=== PATIENT | female | born 1970 | race African-American/Black ===

== ENCOUNTER 2017-01-07 19:17 | Emergency (ER) | payer SELFPAY ==
[~2017-01-07 19:17] MED LIST: METH750T2 PO
[2017-01-07 19:19] VITALS: BP 105/67; PULSE 89; RESP 18; O2SAT 100
[2017-01-07] MEDS ORDERED: PROPOFOL 1000 MG/100 ML INJ 100 ML ONE ×2 (19:27→20:51)
[2017-01-07 19:30] VITALS: O2SAT 100
[2017-01-07] MEDS ORDERED: SODIUM CHLOR 0.9% 1000 ML INJ 1,000 ML IV ONE ×2 (19:30)
[2017-01-07] MEDS ORDERED: SUCCINYLCHOLINE CHLORIDE 100 MG/5 ML SYRINGE IV PUSH ONE (19:45)
[2017-01-07] MEDS ORDERED: ETOMIDATE 20 MG/10 ML VIAL IV PUSH ONE (19:45)
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
[2017-01-07 19:50] VITALS: BP 141/66; PULSE 91; RESP 25; O2SAT 100
[2017-01-07] MEDS ORDERED: PROPOFOL 200 MG/20 ML AMP IV ONE (20:00)
[2017-01-07] MEDS ORDERED: HYDROmorphone HCL PF 1 MG/ML VIAL IV PUSH ONE (20:00)
[2017-01-07] MEDS ORDERED: LACTATED RINGER'S 1000 ML INJ 1,000 ML IV SCH (20:00)
[2017-01-07 20:03] VITALS: BP 135/80; PULSE 95; RESP 31; O2SAT 100
[2017-01-07 20:10] VITALS: BP 118/75; PULSE 84; RESP 19; O2SAT 100
[2017-01-07 20:15] LABS: AUTOMATED NEUTROPHIL # 9.4 TH/MM3 (1.8-7.7); BASOPHIL # 0.2 TH/MM3 (0-0.2); BASOPHIL % 1.9 % (0.0-2.0); EOSINOPHIL % 0.3 % (0.0-4.0); HEMATOCRIT 47.2 % (35.0-46.0); LYMPH % 11.3 % (9.0-44.0); LYMPHOCYTE # 1.4 TH/MM3 (1.0-4.8); MEAN CELL VOLUME 91.3 FL (80.0-100.0); MEAN CORPUSCULAR HEMOGLOBIN 29.6 PG (27.0-34.0); MEAN CORPUSCULAR HGB CONC 32.5 % (32.0-36.0); MONO % 11.5 % (0.0-8.0); PLATELET COUNT 194 TH/MM3 (150-450); RED BLOOD COUNT 5.17 MIL/MM3 (4.00-5.30); RED CELL DISTRIBUTION WIDTH 14.6 % (11.6-17.2); WHITE BLOOD COUNT 12.6 TH/MM3 (4.0-11.0)
[2017-01-07 20:18] LABS: ALT (GPT) 32 U/L (10-53)
[2017-01-07 20:21] LABS: HEMO FLAGS AUTO DIFF
[2017-01-07 20:23] LABS: ANION GAP 14 MEQ/L (5-15); AST (GOT) 70 U/L (15-37); BICARBONATE 18.2 MEQ/L (21.0-32.0); BLOOD UREA NITROGEN 7 MG/DL (7-18); CHLORIDE 103 MEQ/L (98-107); GLOMERULAR FILTRATION RATE 41 ML/MIN (>89); SODIUM (NA) 135 MEQ/L (136-145)
[2017-01-07 20:24] LABS: BACTERIA, URINE RARE /hpf; BLOOD, URINE TRACE (NEG); GLUCOSE,URINE NEG (NEG); HYALINE CAST, URINE 1 /lpf (RARE); KETONE, URINE NEG (NEG); MUCUS URINE FEW /lpf (OCC); NITRITE,URINE NEG (NEG); PH, URINE 5.5 (5.0-8.5); SQUAMOUS EPITHELIAL CELL URINE 1 /hpf (0-5); URINE COLOR YELLOW (YELLW/STRAW)
[2017-01-07 20:24] LABS: POTASSIUM 3.7 MEQ/L (3.5-5.1)
[2017-01-07 20:25] LABS: COMMENT (UR) CATH
[2017-01-07 20:38] LABS: ALKALINE PHOSPHATASE 78 U/L (45-117); CREATINE KINASE 2400 U/L (26-192); TOTAL BILIRUBIN ADULT 0.5 MG/DL (0.2-1.0)
--- NOTE | 2017-01-07 20:47 | RADRPT ---
EXAM DATE/TIME: 01/07/2017 20:37 [place] COMPARISON: No previous studies available for comparison. INDICATIONS : ET tube placement. MEDICAL HISTORY : None. SURGICAL HISTORY : None. ENCOUNTER: Initial ACUITY: 1 day PAIN SCORE: Non-responsive. LOCATION: Bilateral chest FINDINGS: Endotracheal tube tip at the level the clavicles. NG tube side port at the EG junction. There is line ar scarring versus atelectasis in the right midlung. Heart size normal. CONCLUSION: NG tube and ET tube as above. Dieudonne Torres MD on January 07, 2017 at 20:45 Board Certified Radiologist. This report was verified electronically.
[2017-01-07 21:01] LABS: CKMB 12.5 NG/ML (0.5-3.6)
[2017-01-07 21:13] LABS: PLATELET ESTIMATE SMEAR NORMAL (NORMAL); PLATELET MORPHOLOGY ENLARGED (NORMAL); SCAN/DIFF AUTO DIFF CONFIRMED
[2017-01-07 21:31] LABS: BLOOD GAS BASE EXCESS -8.2 mmol/L (-2-2); BLOOD GAS CARBOXYHEMOGLOBIN 3.1 % (0-4); BLOOD GAS HCO3 18 mmol/L (22-26); BLOOD GAS METHEMOGLOBIN 0.7 % (0-2); BLOOD GAS O2 HGB SATURATION 96 % (90-100); BLOOD GAS PCO2 45 mmHg (38-42); BLOOD GAS PO2 470 mmHG (61-120); BLOOD GAS TOTAL HGB 13.2 G/DL (12.0-16.0); TEMP CORR TO 98.6
[2017-01-07 21:32] LABS: CRITICAL VALUE YES; FIO2 100 %; OXYGEN DEVICE VENTILATOR; VENT SETTINGS PRVC
[2017-01-07 21:33] LABS: DRAW SITE LT RADIAL; NUMBER OF ARTERIAL PUNCTURES 1; STAT YES; ULNAR PULSE PRESENT
== END 2017-01-07 21:13 | disposition short-term general hospital (02) ==
LOC: NEPE 19:17
DX: T30.0 Burn of unspecified body region, unspecified degree (principal); X08.8XXA Exposure to other specified smoke, fire and flames, initial encounter
CPT/HCPCS: 31500; 36600; 51702; 71010; 80053; 80307; 81001; 82550; 82552; 82805; 85025; 96361; 96374; 99291; J0330; J1170; J7030; J7120

== ENCOUNTER 2017-02-27 19:00 | Observation (INO) | payer SELFPAY ==
[2017-02-28 10:00] VITALS: BP 104/64; PULSE 97; RESP 20; TEMP 98.2; O2SAT 99
[2017-02-28] MEDS ORDERED: SODIUM CHLORIDE 0.9% FLUSH 10 ML FLUSH IV FLUSH PRN (10:30)
[2017-02-28] MEDS ORDERED: NALOXONE HCL 0.4 MG/ML AMP IV PUSH PRN (10:30)
[2017-02-28] MEDS ORDERED: RESP: ALBUTEROL 1.25 MG/3 ML NEB (PRN) NEB (10:30)
[2017-02-28] MEDS ORDERED: LORazepam 0.5 MG TAB PO PRN (11:00)
[2017-02-28] MEDS ORDERED: hydrOXYzine HCL SYRUP 10 MG/5 ML CUP PO PRN (11:00)
[2017-02-28] MEDS ORDERED: MORPHINE SULFATE 2 MG/ML INJ IV PUSH PRN (11:00)
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
[2017-02-28] MEDS: GABAPENTIN 300 MG CAP PO SCH ×2 (12:28→17:44)
[2017-02-28] MEDS: QUEtiapine FUMARATE 25 MG TAB PO SCH ×2 (12:28→17:44)
[2017-02-28] MEDS: PROPRANOLOL HCL 10 MG TAB PO SCH ×2 (12:29→17:44)
[2017-02-28] MEDS: ASCORBIC ACID 500 MG TAB PO SCH ×2 (12:31→17:44)
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
[2017-02-28 16:00] VITALS: BP 104/63; PULSE 99; RESP 20; TEMP 98.6; O2SAT 97
[2017-02-28] MEDS ORDERED: QUET5TAB PO (16:50)
[2017-02-28] MEDS ORDERED: MULTTAB67 PO (16:50)
[2017-02-28] MEDS ORDERED: PROP10TA6 PO (16:50)
[2017-02-28] MEDS ORDERED: METH500T3 PO (16:50)
[2017-02-28] MEDS ORDERED: BACI500O2 TOPICAL (16:50)
[2017-02-28] MEDS ORDERED: HYDR-3133 PO (16:50)
[2017-02-28] MEDS ORDERED: OXYC1CAP PO (16:50)
[2017-02-28] MEDS ORDERED: ASCO500T PO (16:50)
[2017-02-28] MEDS ORDERED: CETI10 PO (16:50)
[2017-02-28] MEDS ORDERED: FAMO20TA2 PO (16:50)
[2017-02-28] MEDS ORDERED: TRAM50TA PO (16:50)
[2017-02-28] MEDS ORDERED: SENO17.2 PO (16:50)
[2017-02-28] MEDS ORDERED: ENOX30IN SQ (16:50)
[2017-02-28] MEDS ORDERED: GABA600T PO (16:50)
[2017-02-28] MEDS ORDERED: HYDR25TA5 PO (16:50)
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
[2017-02-28 19:55] VITALS: BP 105/58; PULSE 98; RESP 19; TEMP 99; O2SAT 97
[2017-02-28] MEDS ORDERED: traZODone HCL 50 MG TAB PO SCH (21:00)
[2017-02-28] MEDS ORDERED: traZODone HCL 100 MG TAB PO SCH (21:00)
[2017-02-28] MEDS ORDERED: DOCUSATE SODIUM 50 MG/SENNA 8.6 MG TAB PO SCH (21:00)
[2017-02-28] MEDS ORDERED: SODIUM CHLORIDE 0.9% FLUSH 10 ML FLUSH IV FLUSH SCH (21:00)
[2017-02-28] MEDS ORDERED: FAMOTIDINE 20 MG TAB PO SCH (21:00)
[2017-03-01] MEDS ORDERED: HYDROCHLOROTHIAZIDE 25 MG TAB PO SCH ×2 (09:00→15:00)
[2017-03-01] MEDS ORDERED: CETIRIZINE HCL SYRUP 10 MG/10 ML UDC PO SCH (09:00)
[2017-03-01] MEDS ORDERED: ENOXAPARIN SODIUM 40 MG/0.4 ML SYRINGE SQ SCH (09:00)
[2017-03-01] MEDS ORDERED: BACITRACIN OINT 0.9 GM PKT TOPICAL SCH (09:00)
[2017-03-01] MEDS ORDERED: MULTIVITAMIN TAB PO SCH (09:00)
[2017-03-01] MEDS ORDERED: ASCORBIC ACID 500 MG TAB PO SCH ×2 (09:00→14:00)
[2017-03-01] MEDS ORDERED: traMADol HCL 50 MG TAB PO PRN (11:30)
[2017-03-01] MEDS ORDERED: hydrOXYzine HCL 25 MG TAB PO PRN (11:30)
[2017-03-01] MEDS ORDERED: NON-FORMULARY DRUG (Multiple Vitamin 1 TAB) PO SCH (11:30)
[2017-03-01] MEDS ORDERED: PROPRANOLOL HCL 10 MG TAB PO SCH (12:00)
[2017-03-01] MEDS ORDERED: SODIUM CHLORIDE 0.9% FLUSH 10 ML FLUSH IV FLUSH PRN (12:00)
[2017-03-01] MEDS ORDERED: NALOXONE HCL 0.4 MG/ML AMP IV PUSH PRN (12:00)
[2017-03-01] MEDS ORDERED: SODIUM CHLORIDE 0.9% FLUSH 10 ML FLUSH IV FLUSH SCH (12:00)
[2017-03-01] MEDS ORDERED: SENNOSIDES 8.6 MG TAB PO PRN (12:00)
[2017-03-01] MEDS ORDERED: BISACODYL 10 MG SUPP RECTAL PRN (12:00)
[2017-03-01] MEDS ORDERED: cloNIDine HCL 0.1 MG TAB PO PRN (12:15)
[2017-03-01] MEDS ORDERED: QUETIAPINE 50 MG PO SCH (13:00)
[2017-03-01] MEDS ORDERED: DOCUSATE SODIUM 50 MG/SENNA 8.6 MG TAB PO SCH (13:00)
[2017-03-01] MEDS ORDERED: GABAPENTIN 300 MG CAP PO SCH (14:00)
[2017-03-01] MEDS ORDERED: CETIRIZINE HCL 10 MG TAB PO SCH (14:00)
[2017-03-01] MEDS ORDERED: METHOCARBAMOL 500 MG TAB PO SCH (14:00)
[2017-03-01] MEDS ORDERED: BACITRACIN TOP OINT 15 GM TUBE TOPICAL SCH (14:00)
[2017-03-01] MEDS ORDERED: MAGNESIUM HYDROXIDE SUSP 30 ML CUP PO PRN (15:00)
[2017-03-01] MEDS ORDERED: LACTULOSE SYRUP 20 GM/30 ML CUP PO PRN (15:00)
[2017-03-01] MEDS ORDERED: FAMOTIDINE 20 MG TAB PO SCH (15:00)
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
== END 2017-02-28 20:38 ==
LOC: OBSVTOIN 02-28 09:44 → N06A 02-28 09:44 → INTOOBSV 02-28 09:44
PROVIDERS: ADMIT Internal Medicine; ATTEND Internal Medicine
DX: T28.0 Burn of mouth and pharynx (principal); R91.1 Solitary pulmonary nodule; J45.909 Unspecified asthma, uncomplicated; I50.32 Chronic diastolic (congestive) heart failure; G40.909 Epilepsy, unspecified, not intractable, without status epilepticus; R59.9 Enlarged lymph nodes, unspecified; R00.0 Tachycardia, unspecified; Z87.891 Personal history of nicotine dependence; R53.1 Weakness; F31.9 Bipolar disorder, unspecified; X76.XXXD Intentional self-harm by smoke, fire and flames, subsequent encounter; Z86.718 Personal history of other venous thrombosis and embolism; Z86.73 Personal history of transient ischemic attack (TIA), and cerebral infarction without residual deficits
CPT/HCPCS: 97162; G0378; G8987; G8988

== ENCOUNTER 2017-02-28 16:42 | Inpatient (IN) | payer SELFPAY ==
[~2017-02-28] VITALS: Ht 182.9 cm; Wt 63.5 kg
[2017-02-28] MEDS ORDERED: TRAM50TA PO (16:50)
[2017-02-28] MEDS ORDERED: GABA600T PO (16:50)
[2017-02-28] MEDS ORDERED: ASCO500T PO (16:50)
[2017-02-28] MEDS ORDERED: FAMO20TA2 PO (16:50)
[2017-02-28] MEDS ORDERED: METH500T3 PO (16:50)
[2017-02-28] MEDS ORDERED: SENO17.2 PO (16:50)
[2017-02-28] MEDS ORDERED: ENOX30IN SQ (16:50)
[2017-02-28] MEDS ORDERED: HYDR-3133 PO (16:50)
[2017-02-28] MEDS ORDERED: PROP10TA6 PO (16:50)
[2017-02-28] MEDS ORDERED: QUET5TAB PO (16:50)
[2017-02-28] MEDS ORDERED: CETI10 PO (16:50)
[2017-02-28] MEDS ORDERED: HYDR25TA5 PO (16:50)
[2017-02-28] MEDS ORDERED: BACI500O2 TOPICAL (16:50)
[2017-02-28] MEDS ORDERED: OXYC1CAP PO (16:50)
[2017-02-28] MEDS ORDERED: MULTTAB67 PO (16:50)
[2017-02-28 20:30] VITALS: BP 114/60; PULSE 100; RESP 16; TEMP 99; O2SAT 96
[2017-02-28] MEDS: GABAPENTIN 300 MG CAP PO SCH (22:47)
[2017-02-28] MEDS: traZODone HCL 50 MG TAB PO SCH (22:47)
[2017-02-28] MEDS: FAMOTIDINE 20 MG TAB PO SCH (22:47)
[2017-03-01 05:00] VITALS: BP 110/55; PULSE 97; RESP 17; TEMP 98.5; O2SAT 97
[2017-03-01] MEDS: PROPRANOLOL HCL 10 MG TAB PO SCH ×5 (06:00→22:18)
[2017-03-01] MEDS: GABAPENTIN 300 MG CAP PO SCH ×3 (07:02→22:18)
[2017-03-01] MEDS ORDERED: QUEtiapine FUMARATE 25 MG TAB PO SCH (09:00)
[2017-03-01] MEDS: BACITRACIN TOP OINT 15 GM TUBE TOPICAL SCH (09:00)
[2017-03-01] MEDS: DOCUSATE SODIUM 100 MG CAP PO SCH ×2 (09:00→21:00)
[2017-03-01] MEDS: CETIRIZINE HCL 10 MG TAB PO SCH (09:06)
[2017-03-01] MEDS: ASCORBIC ACID 500 MG TAB PO SCH ×3 (09:06→17:43)
[2017-03-01] MEDS: MULTIVITAMIN TAB PO SCH (09:06)
[2017-03-01] MEDS: FAMOTIDINE 20 MG TAB PO SCH ×2 (09:06→22:19)
[2017-03-01] MEDS: HYDROCHLOROTHIAZIDE 25 MG TAB PO SCH (09:07)
[2017-03-01] MEDS: ENOXAPARIN SODIUM 30 MG/0.3 ML SYRINGE SQ SCH (09:10)
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
[2017-03-01 12:20] LABS: AUTOMATED NEUTROPHIL # 5.1 TH/MM3 (1.8-7.7); BASOPHIL # 0.1 TH/MM3 (0-0.2); BASOPHIL % 1.1 % (0.0-2.0); EOSINOPHIL # 0.4 TH/MM3 (0-0.4); EOSINOPHIL % 4.7 % (0.0-4.0); HEMATOCRIT 37.1 % (35.0-46.0); HEMO FLAGS DIFF FINAL; LYMPHOCYTE # 1.3 TH/MM3 (1.0-4.8); MEAN CELL VOLUME 89.9 FL (80.0-100.0); MEAN CORPUSCULAR HEMOGLOBIN 28.8 PG (27.0-34.0); MONO % 12.7 % (0.0-8.0); NEUT % 65.5 % (16.0-70.0); PLATELET COUNT 207 TH/MM3 (150-450); RED BLOOD COUNT 4.13 MIL/MM3 (4.00-5.30); RED CELL DISTRIBUTION WIDTH 16.5 % (11.6-17.2); WHITE BLOOD COUNT 7.8 TH/MM3 (4.0-11.0)
[2017-03-01 12:24] LABS: APTT (PATIENT) 28.3 SEC (24.3-30.1)
[2017-03-01] MEDS: QUEtiapine FUMARATE 25 MG TAB PO SCH (15:50)
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
[2017-03-01 17:57] VITALS: BP 129/70; PULSE 107; RESP 18; TEMP 97.9; O2SAT 95
[2017-03-01] MEDS ORDERED: QUEtiapine FUMARATE 100 MG TAB PO SCH (21:00)
[2017-03-01] MEDS: hydrOXYzine HCL 25 MG TAB PO PRN (22:18)
[2017-03-01] MEDS: traZODone HCL 50 MG TAB PO SCH (22:19)
[2017-03-02 06:16] VITALS: BP 117/62; PULSE 99; RESP 16; TEMP 98.5; O2SAT 94
[2017-03-02] MEDS: PROPRANOLOL HCL 10 MG TAB PO SCH ×3 (06:36→18:00)
[2017-03-02] MEDS: GABAPENTIN 300 MG CAP PO SCH ×3 (06:36→21:33)
[2017-03-02] MEDS: hydrOXYzine HCL 25 MG TAB PO PRN (06:42)
[2017-03-02] MEDS: DOCUSATE SODIUM 100 MG CAP PO SCH ×3 (09:00→21:33)
[2017-03-02] MEDS: ASCORBIC ACID 500 MG TAB PO SCH ×3 (09:24→18:00)
[2017-03-02] MEDS: FAMOTIDINE 20 MG TAB PO SCH ×2 (09:24→21:33)
[2017-03-02] MEDS: HYDROCHLOROTHIAZIDE 25 MG TAB PO SCH (09:25)
[2017-03-02] MEDS: MULTIVITAMIN TAB PO SCH (09:27)
[2017-03-02] MEDS: CETIRIZINE HCL 10 MG TAB PO SCH (09:27)
[2017-03-02] MEDS: EUCERIN CREAM 120 GM JAR TOPICAL SCH (09:28)
[2017-03-02] MEDS: BACITRACIN TOP OINT 15 GM TUBE TOPICAL SCH (09:28)
[2017-03-02] MEDS: ENOXAPARIN SODIUM 30 MG/0.3 ML SYRINGE SQ SCH (09:28)
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
[2017-03-02] MEDS: QUEtiapine FUMARATE 25 MG TAB PO SCH ×2 (09:36→16:00)
--- NOTE | 2017-03-02 12:13 | HHI.PYPN ---
Subjective Remarks Patient seen for follow-up, chart reviewed. Patient seen with radio news writer and a occupational therapist and therapist. Patient found lying in hospital bed noted to, cooperative interview today. Patient states that her mood has been fine" reports having slept "like a baby" which was happy about. Patient is reports that her pain is under control with current medication regimen. She reports having taken a shower earlier today that her mood has been "good". Patient reports feeling somewhat sad and depressed as the daughter did not visit her continues denied her recent event of self injury as a suicide attempt. She reports tolerating medications well. She states that she states that she has spoken to her daughter over the phone and that her sister plans to visit her today. Review of Systems Except as stated in HPI: all other systems reviewed are Neg Mental Status Examination Appearance: Appropriate Consciousness: Alert Orientation: Person, Place, Date/Time Speech: Unremarkable Language: Adequate Fund of Knowledge: Adequate Attention and Concentration: Adequate Memory: Impaired (surrounding events after recent watson) Mood: Sad Affect: Sad, Other (tearful at times) Thought Process & Associations: Intact, Linear Thought Content: Appropriate Hallucination Type: None Delusion Type: None Suicidal Ideation: Yes (denies at this time) Suicidal Plan: No Suicidal Intention: No Homicidal Ideation: No Homicidal Plan: No Homicidal Intention: No Insight: Poor Judgment: Poor Results Vitals/IOs Vital Signs Date Time Temp Pulse Resp B/P (MAP) Pulse Ox O2 Delivery O2 Flow Rate FiO2 03/02/17 06:16 98.5 99 16 117/62 (80) 94 Intake and Output 03/02/17 03/02/17 03/03/17 08:00 16:00 00:00 Intake Total 240 ml Balance 240 ml Assessment & Plan Problem List: (1) Adjustment disorder with depressed mood ICD Codes: F43.21 - Adjustment disorder with depressed mood Assessment & Plan Patient at this time continues to deny recent watson as a suicide attempt despite her account of the incident be an unlikely. Patient tolerating medications well, reporting feeling somewhat depressed but denies any suicide ideations. We'll continue to increase quetiapine to therapeutic dose, 50 mg a.m./50mgPM/150mg HS for mood stabilization with a target dose of 300-400 mg. Collateral pending from daughter. Unclear whether patient will be returning back to or will be living with daughter. Discharge planning in progress Justification for Cont. Inpt. At risk for further decompensation if at lower level of care Discharge Planning Patient possibly to be discharged to patient's daughter's residence Shaquille Sandhu MD Mar 02, 2017 12:13
[2017-03-02] MEDS ORDERED: PILL SPLITTER OTHER PRN (12:30)
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
[2017-03-02 18:22] VITALS: BP 116/75; PULSE 97; RESP 18; TEMP 98.3; O2SAT 97
[2017-03-02] MEDS ORDERED: QUEtiapine FUMARATE 100 MG TAB PO SCH (21:00)
[2017-03-02] MEDS: traMADol HCL 50 MG TAB PO PRN (21:32)
[2017-03-02] MEDS: traZODone HCL 50 MG TAB PO SCH (21:33)
[2017-03-03] MEDS: GABAPENTIN 300 MG CAP PO SCH ×3 (05:35→20:35)
[2017-03-03] MEDS: PROPRANOLOL HCL 10 MG TAB PO SCH ×4 (05:36→18:00)
[2017-03-03 05:59] VITALS: BP 131/73; PULSE 94; RESP 17; TEMP 97.9; O2SAT 95
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
[2017-03-03] MEDS: DOCUSATE SODIUM 100 MG CAP PO SCH ×3 (09:00→20:36)
[2017-03-03] MEDS: QUEtiapine FUMARATE 25 MG TAB PO SCH ×2 (09:00→16:00)
[2017-03-03 09:34] LABS: AUTOMATED NEUTROPHIL # 4.1 TH/MM3 (1.8-7.7); BASOPHIL # 0.1 TH/MM3 (0-0.2); BASOPHIL % 1.7 % (0.0-2.0); EOSINOPHIL # 0.4 TH/MM3 (0-0.4); HEMATOCRIT 40.5 % (35.0-46.0); HEMO FLAGS DIFF FINAL; LYMPHOCYTE # 1.9 TH/MM3 (1.0-4.8); MEAN CELL VOLUME 89.3 FL (80.0-100.0); MEAN CORPUSCULAR HEMOGLOBIN 29.1 PG (27.0-34.0); MEAN CORPUSCULAR HGB CONC 32.5 % (32.0-36.0); NEUT % 55.3 % (16.0-70.0); PLATELET COUNT 249 TH/MM3 (150-450); RED BLOOD COUNT 4.54 MIL/MM3 (4.00-5.30); RED CELL DISTRIBUTION WIDTH 15.7 % (11.6-17.2); WHITE BLOOD COUNT 7.5 TH/MM3 (4.0-11.0)
--- NOTE | 2017-03-03 09:51 | RADRPT ---
EXAM DATE/TIME: 03/03/2017 09:18 [facility] COMPARISON: No previous studies available for comparison. INDICATIONS : Right upper lobe nodule with possible metastases to rib cage. RADIATION DOSE: 5.90 CTDIvol (mGy) MEDICAL HISTORY : Cardiovascular disease. Deep venous thrombosis. Seizures. SURGICAL HISTORY : None. ENCOUNTER: Initial ACUITY: 1 day PAIN SCALE: 0/10 LOCATION: Bilateral chest TECHNIQUE: Volumetric scanning of the chest was performed. Using automated exposure control and adjustment of t he mA and/or kV according to patient size, radiation dose was kept as low as reasonably achievable to obtain optimal diagnostic quality images. DICOM format image data is available electronically for r eview and comparison. Follow-up recommendations for detected pulmonary nodules are based at a minimum on nodule size and pa tient risk factors according to Fleischner Society Guidelines. FINDINGS: LUNGS: There is a spiculated mass involving the central portion of the right upper lobe. This measures 1.6 x 1.3 cm. There is some stranding of the adjacent lung parenchyma. This is directly adjacent to the pu lmonary vessels. A 6 mm subpleural nodule seen involving the left upper lobe anterolaterally. Remaini ng lungs are clear. No infiltrates or effusions. Minimal linear atelectasis versus scarring within th e bases PLEURAE: There is no pleural thickening or pleural effusion. MEDIASTINUM: The heart is normal in size. A small pericardial effusion observed. Aorta and pulmonary arteries are grossly unremarkable this unenhanced study. No gross adenopathy observed. AXILLAE: Bilateral axillary adenopathy. The largest lymph node on the right measures 2.0 x 1.1 cm and on the l eft 2.4 x 1.1 cm.. MUSCULOSKELETAL: There is an area of sclerosis involving the right ninth rib at the costochondral junction. No destruc tion. The remaining visualized skeletal structures are unremarkable. MISCELLANEOUS: The visualized upper abdominal organs demonstrate no acute abnormality. CONCLUSION: 1. Right upper lobe spiculated pulmonary mass measuring 1.6 x 1.3 cm suspicious for malignancy. There is bilateral axillary adenopathy. A pulmonary lesion could relate to an isolated metastasis or prima ry bronchogenic carcinoma. Axial further evaluation of the abdomen and pelvis utilizing a CT scan wit h oral and IV contrast is warranted to evaluate for primary lesion. Consideration after this could be made to right upper lobe pulmonary biopsy if clinically warranted. This biopsy would be relatively h igh risk given the surrounding pulmonary vessels secondary to the central location of the lesion. 2. Small pericardial effusion. 3. Sclerotic change involving the right ninth rib with CT characteristics suggesting prior trauma. Doe Juárez Jr., MD on March 03, 2017 at 9:42 Board Certified Radiologist. This report was verified electronically.
[2017-03-03] MEDS: FAMOTIDINE 20 MG TAB PO SCH ×2 (09:56→20:31)
[2017-03-03] MEDS: MULTIVITAMIN TAB PO SCH (09:56)
[2017-03-03] MEDS: ASCORBIC ACID 500 MG TAB PO SCH ×3 (09:56→18:00)
[2017-03-03] MEDS: HYDROCHLOROTHIAZIDE 25 MG TAB PO SCH (09:56)
[2017-03-03] MEDS: CETIRIZINE HCL 10 MG TAB PO SCH (09:56)
[2017-03-03] MEDS: ENOXAPARIN SODIUM 30 MG/0.3 ML SYRINGE SQ SCH (10:00)
[2017-03-03] MEDS: BACITRACIN TOP OINT 15 GM TUBE TOPICAL SCH (10:00)
[2017-03-03] MEDS: EUCERIN CREAM 120 GM JAR TOPICAL SCH (10:00)
[2017-03-03 10:03] LABS: ANION GAP 8 MEQ/L (5-15); AST (GOT) 17 U/L (15-37); BLOOD UREA NITROGEN 5 MG/DL (7-18); CHLORIDE 101 MEQ/L (98-107); GLOMERULAR FILTRATION RATE 105 ML/MIN (>89); MAGNESIUM 1.8 MG/DL (1.5-2.5); POTASSIUM 3.7 MEQ/L (3.5-5.1); SODIUM (NA) 136 MEQ/L (136-145)
[2017-03-03 10:15] LABS: ALKALINE PHOSPHATASE 78 U/L (45-117); ALT (GPT) 12 U/L (10-53); FREE T4 0.94 NG/DL (0.76-1.46); TOTAL BILIRUBIN ADULT 0.5 MG/DL (0.2-1.0)
--- NOTE | 2017-03-03 11:23 | RADRPT ---
EXAM DATE/TIME: 03/03/2017 10:45 [facility] COMPARISON: No previous studies available for comparison. INDICATIONS : Evaluate for possible lung biopsy. FINDINGS: Request was made for lung biopsy. This patient has a spiculated mass within the right upper lobe. Axi llary adenopathy noted. This is concerning for metastatic disease. The biopsy is relatively high risk given central location and surrounding pulmonary vasculature. CONCLUSION: I would suggest formal evaluation with CT of the abdomen and pelvis using oral and IV contrast to cheyanne luate for a primary lesion. Correlation with mammography is also suggested. Doe Juárez Jr., MD on March 03, 2017 at 11:19 Board Certified Radiologist. This report was verified electronically.
[2017-03-03 11:34] LABS: HEMOGLOBIN A1a 1.8 %; HEMOGLOBIN Ao 85.4 %; HEMOGLOBIN P3 3.4 %
--- NOTE | 2017-03-03 12:43 | HHI.PYPN ---
Subjective Remarks Patient seen for follow-up, chart reviewed. Discussion she staff reported the patient has a compliant with treatment and cooperative with staff. Patient found sitting in hospital chair noted to be calm and cooperative states feeling a little fatigued but her mood has been "okay". Patient states that she feels much better although sad due to recent events but is having "thoughts of living was ". Patient denies any suicide ideation at this time, continues to deny it being a suicide attempt. She states that her 3 reasons to live or that her God gave her a second chance, for herself and her grandchildren. Patient states that she does not plan to return back to her and has not spoken to him but is willing to meet with him if he comes to visit. Patient states that she is considering staying with her daughter upon discharge for support and plans on returning back to school. Review of Systems Except as stated in HPI: all other systems reviewed are Neg Mental Status Examination Appearance: Appropriate Consciousness: Alert Orientation: Person, Place, Date/Time Speech: Unremarkable Language: Adequate Fund of Knowledge: Adequate Attention and Concentration: Adequate Memory: Impaired (surrounding events after recent watson) Mood: Sad (less so today) Affect: Sad, Other (tearful at times) Thought Process & Associations: Intact, Linear Thought Content: Appropriate Hallucination Type: None Delusion Type: None Suicidal Ideation: Yes (denies at this time) Suicidal Plan: No Suicidal Intention: No Homicidal Ideation: No Homicidal Plan: No Homicidal Intention: No Insight: Poor Judgment: Poor Results Labs Labs reviewed 03/03/17 08:57 White Blood Count 7.5 TH/MM3 Red Blood Count 4.54 MIL/MM3 Hemoglobin 13.2 GM/DL Hematocrit 40.5 % Mean Corpuscular Volume 89.3 FL Mean Corpuscular Hemoglobin 29.1 PG Mean Corpuscular Hemoglobin Concent 32.5 % Red Cell Distribution Width 15.7 % Platelet Count 249 TH/MM3 Mean Platelet Volume 10.9 FL Neutrophils (%) (Auto) 55.3 % Lymphocytes (%) (Auto) 25.0 % Monocytes (%) (Auto) 12.0 % Eosinophils (%) (Auto) 6.0 % Basophils (%) (Auto) 1.7 % Neutrophils # (Auto) 4.1 TH/MM3 Lymphocytes # (Auto) 1.9 TH/MM3 Monocytes # (Auto) 0.9 TH/MM3 Eosinophils # (Auto) 0.4 TH/MM3 Basophils # (Auto) 0.1 TH/MM3 CBC Comment DIFF FINAL Differential Comment Blood Urea Nitrogen 5 MG/DL Creatinine 0.72 MG/DL Random Glucose 109 MG/DL Total Protein 8.4 GM/DL Albumin 3.1 GM/DL Calcium Level 9.5 MG/DL Phosphorus Level 4.1 MG/DL Magnesium Level 1.8 MG/DL Alkaline Phosphatase 78 U/L Aspartate Amino Transf (AST/SGOT) 17 U/L Alanine Aminotransferase (ALT/SGPT) 12 U/L Total Bilirubin 0.5 MG/DL Sodium Level 136 MEQ/L Potassium Level 3.7 MEQ/L Chloride Level 101 MEQ/L Carbon Dioxide Level 27.0 MEQ/L Anion Gap 8 MEQ/L Estimat Glomerular Filtration Rate 105 ML/MIN Hemoglobin A1c 5.1 % Free Thyroxine 0.94 NG/DL Thyroid Stimulating Hormone 3rd Gen 1.570 uIU/ML Vitals/IOs Vital Signs Date Time Temp Pulse Resp B/P (MAP) Pulse Ox O2 Delivery O2 Flow Rate FiO2 03/03/17 05:59 97.9 94 17 131/73 (92) 95 Intake and Output 03/03/17 03/03/17 03/04/17 08:00 16:00 00:00 Intake Total 0 ml 360 ml Balance 0 ml 360 ml Assessment & Plan Problem List: (1) Adjustment disorder with depressed mood ICD Codes: F43.21 - Adjustment disorder with depressed mood Assessment & Plan Patient continues endorse feeling sad but denies any suicidal ideations at this time. Patient appears to be improving with mood continues to deny recent events a suicide attempt despite high suspicion of it being likely. Would continue to titrate quetiapine to 50 mg a.m./50 mg p.m./200 mg at bedtime for mood stabilization. Continue recommendations as per primary medical team. Discharge planning in progress Justification for Cont. Inpt. At risk for further decompensation if at lower level of care Discharge Planning Patient possibly discharged to daughter's residence once psychiatrically stable. Shaquille Sandhu MD Mar 03, 2017 12:43
[2017-03-03 18:00] VITALS: BP 109/57; PULSE 93; RESP 17; TEMP 98.3; O2SAT 93
[2017-03-03] MEDS: traZODone HCL 50 MG TAB PO SCH (20:33)
[2017-03-03] MEDS: QUEtiapine FUMARATE 100 MG TAB PO SCH (20:33)
[2017-03-03] MEDS: traMADol HCL 50 MG TAB PO PRN (20:34)
[2017-03-04] MEDS: PROPRANOLOL HCL 10 MG TAB PO SCH ×4 (00:05→17:32)
[2017-03-04] MEDS: GABAPENTIN 300 MG CAP PO SCH ×3 (06:06→20:52)
[2017-03-04 06:09] VITALS: BP 126/64; PULSE 91; RESP 17; TEMP 98; O2SAT 96
[2017-03-04 08:13] LABS: AUTOMATED NEUTROPHIL # 2.6 TH/MM3 (1.8-7.7); BASOPHIL # 0.1 TH/MM3 (0-0.2); BASOPHIL % 1.3 % (0.0-2.0); EOSINOPHIL # 0.5 TH/MM3 (0-0.4); EOSINOPHIL % 8.9 % (0.0-4.0); HEMATOCRIT 36.9 % (35.0-46.0); HEMO FLAGS DIFF FINAL; LYMPH % 26.2 % (9.0-44.0); LYMPHOCYTE # 1.4 TH/MM3 (1.0-4.8); MEAN CELL VOLUME 88.3 FL (80.0-100.0); MEAN CORPUSCULAR HEMOGLOBIN 29.2 PG (27.0-34.0); MEAN CORPUSCULAR HGB CONC 33.1 % (32.0-36.0); MONO % 14.7 % (0.0-8.0); NEUT % 48.9 % (16.0-70.0); PLATELET COUNT 184 TH/MM3 (150-450); RED BLOOD COUNT 4.18 MIL/MM3 (4.00-5.30); RED CELL DISTRIBUTION WIDTH 15.7 % (11.6-17.2); WHITE BLOOD COUNT 5.3 TH/MM3 (4.0-11.0)
[2017-03-04] MEDS: HYDROCHLOROTHIAZIDE 25 MG TAB PO SCH (08:23)
[2017-03-04] MEDS: CETIRIZINE HCL 10 MG TAB PO SCH (08:23)
[2017-03-04] MEDS: FAMOTIDINE 20 MG TAB PO SCH ×2 (08:23→20:51)
[2017-03-04] MEDS: MULTIVITAMIN TAB PO SCH (08:23)
[2017-03-04] MEDS: BACITRACIN TOP OINT 15 GM TUBE TOPICAL SCH (08:24)
[2017-03-04] MEDS: DOCUSATE SODIUM 100 MG CAP PO SCH ×2 (08:24→20:52)
[2017-03-04] MEDS: EUCERIN CREAM 120 GM JAR TOPICAL SCH (08:24)
[2017-03-04] MEDS: ENOXAPARIN SODIUM 30 MG/0.3 ML SYRINGE SQ SCH (08:24)
[2017-03-04] MEDS: ASCORBIC ACID 500 MG TAB PO SCH ×3 (08:26→17:32)
[2017-03-04] MEDS: QUEtiapine FUMARATE 25 MG TAB PO SCH ×2 (08:27→16:35)
[2017-03-04 08:37] LABS: BICARBONATE 29.1 MEQ/L (21.0-32.0); POTASSIUM 3.1 MEQ/L (3.5-5.1)
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
[2017-03-04] MEDS ORDERED: POTASSIUM CHLORIDE 20 MEQ CONTROLLED RELEASE TAB PO ONE (11:00)
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
--- NOTE | 2017-03-04 17:43 | HHI.PYPN ---
Subjective Remarks Pt seen and discussed with staff. She is alert and oriented. She has been compliant and cooperative today. Pt is tearful and expresses fears about upcoming lung biopsy. She reports that she has lost many family members to cancer and she is worried that her daughter will lose her. "I dont want to leave her alone." Mental Status Examination Appearance: Appropriate Consciousness: Alert Orientation: Person, Place, Date/Time Speech: Unremarkable Language: Adequate Fund of Knowledge: Adequate Attention and Concentration: Adequate Memory: Impaired (surrounding events after recent watson) Mood: Sad, Anxious Affect: Sad, Other (tearful at times) Thought Process & Associations: Intact, Linear Thought Content: Appropriate Hallucination Type: None Delusion Type: None Suicidal Ideation: No (denies at this time) Suicidal Plan: No Suicidal Intention: No Homicidal Ideation: No Homicidal Plan: No Homicidal Intention: No Insight: Poor Judgment: Poor Results Labs Test 03/04/17 07:43 White Blood Count 5.3 TH/MM3 Red Blood Count 4.18 MIL/MM3 Hemoglobin 12.2 GM/DL Hematocrit 36.9 % Mean Corpuscular Volume 88.3 FL Mean Corpuscular Hemoglobin 29.2 PG Mean Corpuscular Hemoglobin Concent 33.1 % Red Cell Distribution Width 15.7 % Platelet Count 184 TH/MM3 Mean Platelet Volume 10.7 FL Neutrophils (%) (Auto) 48.9 % Lymphocytes (%) (Auto) 26.2 % Monocytes (%) (Auto) 14.7 % Eosinophils (%) (Auto) 8.9 % Basophils (%) (Auto) 1.3 % Neutrophils # (Auto) 2.6 TH/MM3 Lymphocytes # (Auto) 1.4 TH/MM3 Monocytes # (Auto) 0.8 TH/MM3 Eosinophils # (Auto) 0.5 TH/MM3 Basophils # (Auto) 0.1 TH/MM3 CBC Comment DIFF FINAL Differential Comment Blood Urea Nitrogen 6 MG/DL Creatinine 0.60 MG/DL Random Glucose 106 MG/DL Calcium Level 8.8 MG/DL Sodium Level 138 MEQ/L Potassium Level 3.1 MEQ/L Chloride Level 101 MEQ/L Carbon Dioxide Level 29.1 MEQ/L Anion Gap 8 MEQ/L Estimat Glomerular Filtration Rate 130 ML/MIN Vitals/IOs Vital Signs Date Time Temp Pulse Resp B/P (MAP) Pulse Ox O2 Delivery O2 Flow Rate FiO2 03/04/17 06:09 98.0 91 17 126/64 (84) 96 Intake and Output 03/04/17 03/04/17 03/05/17 08:00 16:00 00:00 Intake Total 480 ml 840 ml 360 ml Balance 480 ml 840 ml 360 ml Assessment & Plan Problem List: (1) Adjustment disorder with depressed mood ICD Codes: F43.21 - Adjustment disorder with depressed mood Assessment & Plan Continue current tx plan. Estimated LOS: days Justification for Cont. Inpt. risk of decompensation Amanda Simms MD Mar 04, 2017 17:43
[2017-03-04 18:00] VITALS: BP 116/64; PULSE 95; RESP 18; TEMP 98.7; O2SAT 98
[2017-03-04] MEDS: QUEtiapine FUMARATE 100 MG TAB PO SCH (20:51)
[2017-03-04] MEDS: traZODone HCL 50 MG TAB PO SCH (20:52)
[2017-03-04] MEDS: hydrOXYzine HCL 25 MG TAB PO PRN (20:52)
[2017-03-04] MEDS: DIATRIZOATE MEGLUM/DIATRIZOATE SOD 9 ML CUP PO ONE (21:30)
[2017-03-05] MEDS: PROPRANOLOL HCL 10 MG TAB PO SCH ×4 (04:53→18:00)
[2017-03-05] MEDS: GABAPENTIN 300 MG CAP PO SCH ×3 (04:53→20:26)
[2017-03-05] MEDS: hydrOXYzine HCL 25 MG TAB PO PRN (04:53)
[2017-03-05 06:24] VITALS: BP 143/86; PULSE 71; RESP 16; TEMP 97.8; O2SAT 95
[2017-03-05] MEDS: DOCUSATE SODIUM 100 MG CAP PO SCH ×2 (09:00→20:27)
[2017-03-05] MEDS: HYDROCHLOROTHIAZIDE 25 MG TAB PO SCH (09:21)
[2017-03-05] MEDS: CETIRIZINE HCL 10 MG TAB PO SCH (09:21)
[2017-03-05] MEDS: FAMOTIDINE 20 MG TAB PO SCH ×2 (09:21→20:26)
[2017-03-05] MEDS: ASCORBIC ACID 500 MG TAB PO SCH ×3 (09:21→18:00)
[2017-03-05] MEDS: MULTIVITAMIN TAB PO SCH (09:21)
[2017-03-05] MEDS: BACITRACIN TOP OINT 15 GM TUBE TOPICAL SCH (09:22)
[2017-03-05] MEDS: EUCERIN CREAM 120 GM JAR TOPICAL SCH (09:22)
[2017-03-05] MEDS: ENOXAPARIN SODIUM 30 MG/0.3 ML SYRINGE SQ SCH (09:22)
[2017-03-05] MEDS: QUEtiapine FUMARATE 25 MG TAB PO SCH ×2 (09:24→15:24)
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
[2017-03-05 17:25] VITALS: BP 150/69; PULSE 95; RESP 17; TEMP 98; O2SAT 99
--- NOTE | 2017-03-05 19:53 | HHI.PYPN ---
Subjective Remarks Pt seen and discussed with staff. Pt reports that she had a good visit with family today which helped brighten her spirits. She states that she has decided to not think about the upcoming biopsy and anxiety has lessened. She is compliant iwth medications and denies SI/HI. Mental Status Examination Appearance: Appropriate Consciousness: Alert Orientation: Person, Place, Date/Time Speech: Unremarkable Language: Adequate Fund of Knowledge: Adequate Attention and Concentration: Adequate Memory: Impaired (surrounding events after recent watson) Mood: Sad, Anxious Affect: Sad, Other (tearful at times) Thought Process & Associations: Intact, Linear Thought Content: Appropriate Hallucination Type: None Delusion Type: None Suicidal Ideation: No (denies at this time) Suicidal Plan: No Suicidal Intention: No Homicidal Ideation: No Homicidal Plan: No Homicidal Intention: No Insight: Poor Judgment: Poor Results Vitals/IOs Vital Signs Date Time Temp Pulse Resp B/P (MAP) Pulse Ox O2 Delivery O2 Flow Rate FiO2 03/05/17 17:25 98.0 95 17 150/69 (96) 99 Intake and Output 03/05/17 03/05/17 03/06/17 08:00 16:00 00:00 Intake Total 720 ml 240 ml 240 ml Balance 720 ml 240 ml 240 ml Assessment & Plan Problem List: (1) Adjustment disorder with depressed mood ICD Codes: F43.21 - Adjustment disorder with depressed mood Assessment & Plan Continue current tx plan Estimated LOS: days Justification for Cont. Inpt. risk of decompensation Amanda Simms MD Mar 05, 2017 19:53
[2017-03-05] MEDS: QUEtiapine FUMARATE 100 MG TAB PO SCH (20:26)
[2017-03-05] MEDS: traZODone HCL 50 MG TAB PO SCH (20:26)
[2017-03-05] MEDS ORDERED: DIATRIZOATE MEGLUM/DIATRIZOATE SOD 9 ML CUP PO ONE (21:00)
[2017-03-06] MEDS: PROPRANOLOL HCL 10 MG TAB PO SCH ×4 (05:40→18:00)
[2017-03-06] MEDS: GABAPENTIN 300 MG CAP PO SCH ×3 (06:17→21:25)
[2017-03-06 06:35] VITALS: BP 105/59; PULSE 95; RESP 18; TEMP 98.4; O2SAT 98
[2017-03-06] MEDS: ENOXAPARIN SODIUM 30 MG/0.3 ML SYRINGE SQ SCH (08:49)
[2017-03-06] MEDS: DOCUSATE SODIUM 100 MG CAP PO SCH ×2 (08:51→21:00)
[2017-03-06] MEDS: FAMOTIDINE 20 MG TAB PO SCH ×2 (08:51→21:25)
[2017-03-06] MEDS: ASCORBIC ACID 500 MG TAB PO SCH ×3 (08:51→18:00)
[2017-03-06] MEDS: CETIRIZINE HCL 10 MG TAB PO SCH (08:52)
[2017-03-06] MEDS: MULTIVITAMIN TAB PO SCH (08:52)
[2017-03-06] MEDS: BACITRACIN TOP OINT 15 GM TUBE TOPICAL SCH (08:53)
[2017-03-06] MEDS: QUEtiapine FUMARATE 25 MG TAB PO SCH ×2 (09:00→15:23)
[2017-03-06] MEDS: HYDROCHLOROTHIAZIDE 25 MG TAB PO SCH (09:01)
[2017-03-06] MEDS: EUCERIN CREAM 120 GM JAR TOPICAL SCH (09:04)
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
[2017-03-06] MEDS ORDERED: QUET5TAB PO (12:43)
[2017-03-06] MEDS ORDERED: TRAZ50TA12 PO (12:43)
[2017-03-06] MEDS ORDERED: QUET1TAB9 PO (12:43)
[2017-03-06] MEDS ORDERED: IOHEXOL 350 MG/ML 10 ML VIAL (for RAD DIAG) IVCONTRAST ONE (16:50)
--- NOTE | 2017-03-06 17:11 | HHI.PYPN ---
Subjective Remarks Patient seen for follow-up, chart review. Patient found lying in hospital bed noted to be calm and cooperative. Patient states that her weekend went well and states that she had been visited by her daughter which she is looking forward to seeing once he leaves the hospital because daughter have made her special chicken. Patient reports feeling "good", denies feeling depressed at this time denies any suicide ideations and plans on returning back to her daughter. Patient states that she had been feeling somewhat sad recently due to her news by her medical team of possible neoplasm which she is currently receiving continued workup for at this time. Review of Systems Except as stated in HPI: all other systems reviewed are Neg Mental Status Examination Appearance: Appropriate Consciousness: Alert Orientation: Person, Place, Date/Time Speech: Unremarkable Language: Adequate Fund of Knowledge: Adequate Attention and Concentration: Adequate Memory: Impaired (surrounding events after recent watson) Mood: Anxious Affect: Anxious Thought Process & Associations: Intact, Linear Thought Content: Appropriate Hallucination Type: None Delusion Type: None Suicidal Ideation: No (denies at this time) Suicidal Plan: No Suicidal Intention: No Homicidal Ideation: No Homicidal Plan: No Homicidal Intention: No Insight: Fair Judgment: Impulsive Results Vitals/IOs Vital Signs Date Time Temp Pulse Resp B/P (MAP) Pulse Ox O2 Delivery O2 Flow Rate FiO2 03/06/17 06:35 98.4 95 18 105/59 (74) 98 Intake and Output 03/06/17 03/06/17 03/06/17 07:59 15:59 23:59 Intake Total 600 ml 240 ml Balance 600 ml 240 ml Assessment & Plan Problem List: (1) Adjustment disorder with depressed mood ICD Codes: F43.21 - Adjustment disorder with depressed mood Assessment & Plan Patient at this time appears to be responding well to treatment, denies any suicidality at this time As per renal team patient currently pending abdomen CT scan this patient had recent repeat CT scan of the chest on 03/03 showed right upper lobe spiculated pulmonary mass suspicious for malignancy. If patient has been cleared by medical team patient will likely in need to follow up outpatient for continued workup of suspected neoplasm. If patient will continue to require further inpatient workup patient will be transferred to the medical floor and cleared psychiatrically. Pending medical team recommendations. Discharge planning in progress Justification for Cont. Inpt. At risk for further decompensation if at lower level of care Discharge Planning Patient is medically cleared will be returned to daughter's residence Shaquille Sandhu MD Mar 06, 2017 17:11
--- NOTE | 2017-03-06 17:19 | RADRPT ---
EXAM DATE/TIME: 03/06/2017 16:32 [place] COMPARISON: CT THORAX W/O CONTRAST, March 03, 2017, 9:18. INDICATIONS : Lung mass evaluate for primary IV CONTRAST: 90 cc Omnipaque 350 (iohexol) IV ORAL CONTRAST: Prescribed oral contrast ingested. RADIATION DOSE: 12.94 CTDIvol (mGy) MEDICAL HISTORY : Cerebrovascular disease. Seizures. Deep venous thrombosis.Congestive heart failure SURGICAL HISTORY : Grafts ENCOUNTER: Initial ACUITY: 1 day PAIN SCALE: 6/10 LOCATION: Abdomen TECHNIQUE: Volumetric scanning of the abdomen and pelvis was performed. Using automated exposure control and ad justment of the mA and/or kV according to patient size, radiation dose was kept as low as reasonably achievable to obtain optimal diagnostic quality images. DICOM format image data is available electro nically for review and comparison. FINDINGS: LOWER LUNGS: Please refer to recent chest CT report for description of the supradiaphragmatic findings. There is a small pericardial effusion. LIVER: Homogeneous density without lesion. There is no dilation of the biliary tree. No calcified gallston es. SPLEEN: Normal size without lesion. PANCREAS: Within normal limits. KIDNEYS: Normal in size and shape. There is no mass, stone or hydronephrosis. ADRENAL GLANDS: Within normal limits. VASCULAR: There is no aortic aneurysm. BOWEL/MESENTERY: The stomach, small bowel, and colon demonstrate no acute abnormality. There is no free intraperitone al air or fluid. ABDOMINAL WALL: Within normal limits. RETROPERITONEUM: There is no lymphadenopathy. BLADDER: No wall thickening or mass. REPRODUCTIVE: There is a right adnexal/ovarian cystic lesion measuring 5.0 cm. And demonstrates possible nodule wit h calcification along the posterior medial wall. The uterus is heterogeneously enhancing with lobulat ed contour. INGUINAL: There is no lymphadenopathy or hernia. MUSCULOSKELETAL: No acute abnormality is identified. There is a sclerotic thickening of the right lateral ninth rib. CONCLUSION: 1. No definite primary malignancy is identified within the abdomen or pelvis. 2. There is a mildly complex right ovarian cystic lesion measuring 5 cm. Consider further characteriz ation with transabdominal and transvaginal pelvis ultrasound. Additionally, the uterus has a lobulate d contour suggesting fibroids. This could also be further evaluated at time of ultrasound. 3. Sclerotic mildly expansile right lateral ninth rib. The appearance is nonspecific but could be rel ated to old trauma. No other osseous abnormality is identified. Hank Jacob MD on March 06, 2017 at 17:09 Board Certified Radiologist. This report was verified electronically.
[2017-03-06 18:00] VITALS: BP 120/76; PULSE 88; RESP 18; TEMP 97.7; O2SAT 98
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
[2017-03-06] MEDS: traZODone HCL 50 MG TAB PO SCH (21:25)
[2017-03-06] MEDS: QUEtiapine FUMARATE 100 MG TAB PO SCH (21:25)
[2017-03-06] MEDS: hydrOXYzine HCL 25 MG TAB PO PRN (21:36)
[2017-03-07] MEDS: PROPRANOLOL HCL 10 MG TAB PO SCH ×3 (00:50→11:18)
[2017-03-07] MEDS: GABAPENTIN 300 MG CAP PO SCH (05:31)
[2017-03-07 06:08] VITALS: BP 121/61; PULSE 89; RESP 16; TEMP 98.5; O2SAT 96
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
[2017-03-07] MEDS: HYDROCHLOROTHIAZIDE 25 MG TAB PO SCH (08:15)
[2017-03-07] MEDS: BACITRACIN TOP OINT 15 GM TUBE TOPICAL SCH (08:15)
[2017-03-07] MEDS: ENOXAPARIN SODIUM 30 MG/0.3 ML SYRINGE SQ SCH (08:15)
[2017-03-07] MEDS: CETIRIZINE HCL 10 MG TAB PO SCH (08:15)
[2017-03-07] MEDS: FAMOTIDINE 20 MG TAB PO SCH (08:15)
[2017-03-07] MEDS: ASCORBIC ACID 500 MG TAB PO SCH (08:15)
[2017-03-07] MEDS: QUEtiapine FUMARATE 25 MG TAB PO SCH (08:15)
[2017-03-07] MEDS: MULTIVITAMIN TAB PO SCH (08:15)
[2017-03-07] MEDS: DOCUSATE SODIUM 100 MG CAP PO SCH (08:15)
[2017-03-07] MEDS: EUCERIN CREAM 120 GM JAR TOPICAL SCH (08:16)
[2017-03-07] MEDS: hydrOXYzine HCL 25 MG TAB PO PRN (08:22)
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
[2017-03-07] MEDS ORDERED: OXYC1CAP PO (10:11)
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
== END 2017-03-07 11:30 | disposition home or self-care (01) | DRG 881 ==
LOC: H4EA 20:20
PROVIDERS: ADMIT Student in an Organized Health Care Education/Training Program; ATTEND Student in an Organized Health Care Education/Training Program
DX: F43.21 Adjustment disorder with depressed mood (principal); I50.32 Chronic diastolic (congestive) heart failure; F31.9 Bipolar disorder, unspecified; J45.909 Unspecified asthma, uncomplicated; R59.0 Localized enlarged lymph nodes; R00.0 Tachycardia, unspecified; R91.1 Solitary pulmonary nodule; E87.6 Hypokalemia; G40.909 Epilepsy, unspecified, not intractable, without status epilepticus; Z86.718 Personal history of other venous thrombosis and embolism; Z87.891 Personal history of nicotine dependence; Z86.73 Personal history of transient ischemic attack (TIA), and cerebral infarction without residual deficits; Z81.8 Family history of other mental and behavioral disorders; Z91.5 Personal history of self-harm
CPT/HCPCS: 71250; 74177; 80048; 80053; 83036; 83735; 84100; 84439; 84443; 85025; 85610; 85730; J1650; L0120; Q9963; Q9967

== ENCOUNTER → 2017-03-17 | Outpatient (CLI) | payer SELFPAY ==
[~2017-03-17] MED LIST changes: +ASCO500T PO; +BACI500O2 TOPICAL; +CETI10 PO; +CYCL10TA PO; +ENOX30IN SQ; +FAMO20TA2 PO; +GABA600T PO; +HYDR-3133 PO; +METH500T3 PO; -METH750T2 PO; +MULTTAB67 PO; +OXYC1CAP PO; +PROP10TA6 PO; +QUET1TAB9 PO; +QUET5TAB PO; +SENO17.2 PO; +TRAZ50TA12 PO
--- NOTE | 2017-03-20 09:45 | RSPPFT ---
DATE OF PROCEDURE: 03/17/17 COMMENTS: VOLUMES DYNAMIC: FVC and FEV1 severely reduced. FLOWS: FEV1% moderately reduced; FEF 25-75 severely reduced. IMPRESSION: Severe obstructive ventilatory defect. No improvement post-bronchodilator.
== END ==
LOC: HRSP 09:39
PROVIDERS: ATTEND Internal Medicine
DX: R06.02 Shortness of breath (principal)
CPT/HCPCS: 94060

== ENCOUNTER 2017-03-21 09:10 | Emergency (ER) | payer SELFPAY ==
[~2017-03-21] VITALS: Ht 182.9 cm; Wt 74.0 kg
[~2017-03-21 09:10] MED LIST changes: -CYCL10TA PO
[2017-03-21 09:13] VITALS: BP 121/89; PULSE 97; RESP 18; TEMP 98.5; O2SAT 98
[2017-03-21] MEDS ORDERED: CYCL10TA PO (09:59)
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
== END 2017-03-21 10:26 | disposition home or self-care (01) ==
LOC: NEPE 09:10
DX: T21.01XD Burn of unspecified degree of chest wall, subsequent encounter (principal); T31.33 Burns involving 30-39% of body surface with 30-39% third degree burns; X08.8XXD Exposure to other specified smoke, fire and flames, subsequent encounter
CPT/HCPCS: 99281